=== PATIENT | female | born 1960 | race Asian ===

== ENCOUNTER 2016-11-25 16:04 | Emergency (ER) | payer OTHER ==
[~2016-11-25] VITALS: Ht 154.9 cm; Wt 60.0 kg
[2016-11-25 16:05] VITALS: BP 124/86
[2016-11-25] MEDS ORDERED: DiphenhydrAMINE HCL 50 MG CAPSULE PO ONE (16:45)
[2016-11-25] MEDS ORDERED: PredniSONE 20 MG TABLET PO ONE (16:45)
== END 2016-11-25 17:29 | disposition home or self-care (01) ==
LOC: EMS 16:06
DX: T78.40XA Allergy, unspecified, initial encounter (principal)
CPT/HCPCS: 99283; J7512

== ENCOUNTER 2023-01-17 01:50 | Emergency (ER) | payer OTHER ==
[~2023-01-17] VITALS: Ht 154.9 cm; Wt 70.9 kg
[2023-01-17 01:51] VITALS: TEMP 97.7
[2023-01-17] MEDS ORDERED: ONDANSETRON HCL 4 MG TABLET PO ONE (02:45)
[2023-01-17] MEDS ORDERED: MECLIZINE HCL 25 MG TABLET PO ONE (02:45)
[2023-01-17 03:12] LABS: BASOPHILS % (AUTO) 1.6 % (0.0-2.0); HEMATOCRIT 41.1 % (36-46); HEMOGLOBIN 13.6 g/dL (12.0-16.0); LYMPHOCYTES # (AUTO) 1.1 K/uL (1.0-4.8); LYMPHOCYTES % (AUTO) 20.9 % (22.0-44.0); MEAN CORPUSCULAR HEMOGLOBIN 29.9 pg (26.0-34.0); MEAN CORPUSCULAR HGB CONC 33.1 G/dL (31.0-37.0); MEAN CORPUSCULAR VOLUME 90 fL (80-100); MONOCYTES # (AUTO) 0.6 K/uL (0.1-1.0); NEUTROPHILS # (AUTO) 3.3 K/uL (1.8-7.7); NEUTROPHILS % (AUTO) 63.5 % (40.0-70.0); PLATELET COUNT (AUTO) 178 K/uL (150-450); RED BLOOD CELL COUNT(AUTO) 4.55 MIL/uL (4.00-5.20)
[2023-01-17 03:27] LABS: ANION GAP 5 mmol/L (8-16); CALCIUM, TOTAL 9.2 mg/dL (8.8-10.5); CARBON DIOXIDE 32 mmol/L (22-29); CHLORIDE 102 mmol/L (98-107); CREATININE 0.82 mg/dL (0.60-1.30); GLOMERULAR FILTR. RATE CALC > 60 mL/min (>60); GLUCOSE,RANDOM 147 mg/dL (70-110); POTASSIUM 3.3 mmol/L (3.5-5.1); SODIUM SERUM 138 mmol/L (136-145)
[2023-01-17 03:52] LABS: ALANINE AMINOTRANSFERASE 42 U/L (12-78); ALBUMIN 3.6 g/dL (3.4-5.0); ALKALINE PHOSPHATASE 65 U/L (46-116); ASPARTATE AMINOTRANSFERASE 31 U/L (15-37); BILIRUBIN,TOTAL 0.3 mg/dL (0.1-1.0); CREATINE KINASE, TOTAL ONLY 274 U/L (26-192); TOTAL PROTEIN, SERUM 8.2 g/dL (6.4-8.2)
[2023-01-17 04:25] LABS: APPEARANCE,URINE CLEAR (CLEAR); BILIRUBIN,URINE NEGATIVE (NEGATIVE); GLUCOSE, URINE (UA) NEGATIVE (NEGATIVE); KETONES,URINE NEGATIVE (NEGATIVE); LEUKOCYTE ESTERASE ,URINE NEGATIVE (NEGATIVE); NITRATE,URINE NEGATIVE (NEGATIVE); OCCULT BLOOD,URINE NEGATIVE (NEGATIVE); PH,URINE 7.5 (5.0-8.0); PROTEIN,URINE NEGATIVE (NEGATIVE); SPECIFIC GRAVITIY, URINE 1.004 (1.003-1.030); UROBILINOGEN,URINE <=1.0 mg/dL (<=1.0)
[2023-01-17 04:29] LABS: BACTERIA,URINE None Seen /HPF (None Seen); RBC,URINE None Seen /HPF (0-2); SQUAMOUS EPITHELIAL CELL,UR Few /LPF (None Seen); WBC,URINE None Seen /HPF (0-5)
[2023-01-17] MEDS ORDERED: MECL-160 PO (04:58)
[2023-01-17 05:16] VITALS: BP 160/84; PULSE 68; RESP 16
== END 2023-01-17 05:16 | disposition home or self-care (01) ==
LOC: EMS 01:50
DX: R42 Dizziness and giddiness (principal); Z88.8 Allergy status to other drugs, medicaments and biological substances
CPT/HCPCS: 99284; 70450; 80053; 81001; 82550; 84484; 85025; 36415; 93005; Q0162

== ENCOUNTER 2023-04-30 09:53 | Emergency (ER) | payer OTHER ==
[~2023-04-30] VITALS: Ht 165.1 cm; Wt 68.2 kg
[~2023-04-30 09:53] MED LIST: MECL-302 PO
[2023-04-30 10:11] VITALS: TEMP 99.9
[2023-04-30 10:15] LABS: COVID AG,FIA SOURCE NASAL SWAB
[2023-04-30 10:47] LABS: BASOPHILS % (AUTO) 0.3 % (0.0-2.0); EOSINOPHILS % (AUTO) 0 % (1.0-6.0); HEMATOCRIT 37.4 % (36-46); HEMOGLOBIN 12.6 g/dL (12.0-16.0); LYMPHOCYTES # (AUTO) 0.6 K/uL (1.0-4.8); LYMPHOCYTES % (AUTO) 11.7 % (22.0-44.0); MEAN CORPUSCULAR HGB CONC 33.6 G/dL (31.0-37.0); MEAN CORPUSCULAR VOLUME 89 fL (80-100); MONOCYTES # (AUTO) 0.8 K/uL (0.1-1.0); MONOCYTES % (AUTO) 15.6 % (2.0-9.0); NEUTROPHILS # (AUTO) 3.9 K/uL (1.8-7.7); NEUTROPHILS % (AUTO) 72.4 % (40.0-70.0); PLATELET COUNT (AUTO) 147 K/uL (150-450); WHITE BLOOD COUNT (AUTO) 5.4 K/uL (4.5-11.0)
[2023-04-30 10:58] LABS: ANION GAP 8 mmol/L (8-16); CARBON DIOXIDE 28 mmol/L (22-29); CHLORIDE 100 mmol/L (98-107); CREATININE 0.88 mg/dL (0.60-1.30); GLOMERULAR FILTR. RATE CALC > 60 mL/min (>60); GLUCOSE,RANDOM 106 mg/dL (70-110); POTASSIUM 3.2 mmol/L (3.5-5.1); SODIUM SERUM 136 mmol/L (136-145); UREA NITROGEN, BLOOD 12 mg/dL (7-18)
[2023-04-30 11:03] LABS: ALANINE AMINOTRANSFERASE 62 U/L (12-78); ALBUMIN 2.8 g/dL (3.4-5.0); ALKALINE PHOSPHATASE 59 U/L (46-116); ASPARTATE AMINOTRANSFERASE 79 U/L (15-37); BILIRUBIN,TOTAL 0.2 mg/dL (0.1-1.0); TOTAL PROTEIN, SERUM 7.4 g/dL (6.4-8.2)
[2023-04-30 11:13] LABS: TROPONIN I-HIGH SENSITIVITY 57 ng/L (<51)
[2023-04-30 11:14] LABS: SARS-COV2 (COVID) ANTIGEN,FIA Negative (Negative)
[2023-04-30 11:14] LABS: B-TYPE NATRIURETIC PEPTIDE 45 pg/mL (0-100)
[2023-04-30] MEDS ORDERED: POTASSIUM CHLORIDE 20 MEQ ER TABLET PO ONE (11:15)
[2023-04-30 11:16] LABS: INFLUENZA TYPE B NEGATIVE FOR TYPE B (NEGATIVE)
[2023-04-30 11:17] LABS: INFLUENZA TYPE A POSITIVE FOR TYPE A (NEGATIVE)
[2023-04-30 12:55] LABS: TROPONIN I-HIGH SENSITIVITY 68 ng/L (<51)
[2023-04-30 12:57] VITALS: BP 145/99; PULSE 106; RESP 20
[2023-04-30] MEDS ORDERED: OSEL75 PO (13:14)
== END 2023-04-30 13:49 | disposition home or self-care (01) ==
LOC: EMS 09:55
DX: J10.1 Influenza due to other identified influenza virus with other respiratory manifestations (principal); Z20.822 Contact with and (suspected) exposure to COVID-19
CPT/HCPCS: 71045; 80053; 83880; 84484; 85025; 87804; 93005; 99285; 36415-L1; 36415-TC